=== PATIENT | female | born 1960 | race Caucasian/White ===

== ENCOUNTER 2019-03-10 08:55 | Day surgery (SDC) | payer OTHER ==
[~2019-03-10] VITALS: Ht 149.9 cm; Wt 79.4 kg
[2019-03-10] VITALS (11 sets, daily range): BP systolic 134–176; BP diastolic 73–88; PULSE 60–78; RESP 9–24; Ht 149.9 cm; Wt 79.4 kg
[~2019-03-10 08:55] MED LIST: CYCLOPENTOLATE 2% 2 ML OPH OPER SCH; MOXIFLOXACIN 0.5% 3 ML OPH OPER ONE; NEPAFENAC 0.1% 3 ML OPH OPER SCH; PHENYLephrine 10% 5 ML OPH OPER SCH
[2019-03-10] MEDS ORDERED: LIDOCAINE 1% (MPF) 10 ML INJ ONE (09:44)
[2019-03-10] MEDS ORDERED: NA BICARB 50 MEQ/50 ML VIAL ONE (09:45)
[2019-03-10] MEDS ORDERED: EPINEPHrine 1 MG INJ ONE (09:45)
[2019-03-10] MEDS ORDERED: LIDOCAINE 2% (SDV) 5 ML INJ ONE ×2 (09:46→10:36)
[2019-03-10] MEDS ORDERED: TIMOLOL MALEATE/PF 0.5% OCCUDOSE (0.3 ML) ONE (09:49)
[2019-03-10] MEDS ORDERED: INSU100C SQ (09:51)
--- NOTE | 2019-03-10 10:03 | PREAC ---
Date/Time of Note Date/Time of Note DATE: 03/10/19 TIME: 10:00 Anesthesia Eval and Record Evaluation Time Pre-Procedure Interview DATE: 03/10/19 TIME: 10:00 Age 58 Sex female NPO: 8 hrs Preoperative diagnosis L eye cataract Planned procedure L phacoemulsificaTION OF CATARACT W/ LENS IMPLANTATION OF POSTERIOR CHAMBER IOL IN L EYE Past Medical History Past Medical History: Includes Cardio: HTN, Dyslipidemia Endo: Diabetes GI: Obesity Surgery & Anesthesia Issues No known issue Meds Anticoagulation: No Beta Valentin within 24 hr: No Reason Beta Valentin not given: Pt. not on B-Valentin Reported Medications Insulin Lispro (Humalog) 100 Unit/1 Ml Cartridge, 12 UNIT SQ TID AC, EA 03/10/19 Current Medications Cyclopentolate HCl (Cyclogyl 2% Oph) 1 drop Q5 MIN X 3 OPER ; Start 03/10/19 at 07:00; Stop 03/10/19 at 18:00 Phenylephrine HCl (Ak-Dilate 10%) 1 drop Q5 MIN X3 OPER ; Start 03/10/19 at 07:00; Stop 03/10/19 at 18:00 Nepafenac ([place] Oph) 1 drop Q5 MIN X3 OPER ; Start 03/10/19 at 07:00; Stop 03/10/19 at 18:00 Meds reviewed: Yes Allergies Coded Allergies: No Known Allergy (Unverified , 03/09/19) Allergies Reviewed: Yes Labs/Studies Labs Reviewed: Reviewed by anesthesiologist test: N/A Pre-procedure Exam Last vitals Vital Signs Date Temp Pulse Resp B/P (MAP) Pulse Ox O2 O2 Flow FiO2 Time Delivery Rate 03/10/19 97.5 60 16 176/80 96 09:47 (112) Airway: Adequate mouth opening, Adequate thyromental dist Mallampati: Mallampati II Teeth: Abnormal (EDENTULOUS) Lung: Normal Heart: Normal ASA Physical Status ASA physical status: 2 Emergency: None Planned Anesthetic General/MAC: MAC Pre-operative Attestations Prior to commencing anesthesia and surgery, the patient was re-evaluated, there was verification of: *The patient's identity *The results of appropriate recent lab work and preoperative vital signs *The above evaluation not changing prior to induction *Anesthetic plan, risk benefits, alternative and complications discussed with patient/family; questions answered; patient/family understands, accepts and wishes to proceed. Wordpress Developer used MYRIAM MARIE Mar 10, 2019 10:03
[2019-03-10] MEDS ORDERED: ATOR40TA68 PO (10:05)
[2019-03-10] MEDS ORDERED: LANT3I SC (10:05)
[2019-03-10] MEDS ORDERED: EMPA10TA PO ×2 (10:05)
[2019-03-10] MEDS ORDERED: SITA100T11 PO (10:05)
[2019-03-10] MEDS ORDERED: LOSA50TA14 PO (10:05)
[2019-03-10] MEDS ORDERED: METF500T3 PO (10:05)
[2019-03-10] MEDS ORDERED: LIDOCAINE 1% (MPF) 10 ML INJ INJ ONE (10:20)
[2019-03-10] MEDS ORDERED: PHENYLephrine 10% 5 ML OPH LEFT EYE ONE (10:20)
[2019-03-10] MEDS ORDERED: TIMOLOL 0.5% 5 ML OPH LEFT EYE ONE (10:20)
--- NOTE | 2019-03-10 10:29 | HPN ---
Date/Time of Note Date/Time of Note DATE: 03/10/19 TIME: 10:28 Interval H&P Admission Note Pt. seen H&P reviewed: No system changes ADA TOLENTINO MD Mar 10, 2019 10:29
[2019-03-10] MEDS ORDERED: DIPHENHYDRAMINE 50 MG INJ IV PRN (10:30)
[2019-03-10] MEDS ORDERED: ACETAMINOPHEN 500 MG TAB PO PRN (10:30)
[2019-03-10] MEDS ORDERED: ONDANSETRON 4 MG INJ IV PRN (10:30)
[2019-03-10] MEDS ORDERED: OXYCODONE/ACETAMINOPHEN (5/325) TAB PO PRN (10:30)
[2019-03-10] MEDS ORDERED: ACETAMINOPHEN 325 MG TAB PO PRN (10:30)
[2019-03-10] MEDS ORDERED: hydrALAzine 20 MG INJ IV PRN (10:30)
[2019-03-10] MEDS ORDERED: ALBUTEROL 0.083% (NEB) 2.5 MG/3 ML AMP HHN PRN (10:30)
[2019-03-10] MEDS ORDERED: LABETALOL HCL 20MG INJ IV PRN (10:30)
[2019-03-10] MEDS ORDERED: PROPOFOL 20 ML ONE (10:36)
[2019-03-10] MEDS ORDERED: CARBACHOL 0.01% 1.5 ML OPH INJ LEFT EYE ONE (11:04)
--- NOTE | 2019-03-10 11:22 | PAC ---
Date/Time of Note Date/Time of Note DATE: 03/10/19 TIME: 11:21 Post-Anesthesia Notes Post-Anesthesia Note Last documented vital signs Vital Signs Date Temp Pulse Resp B/P Pulse Ox O2 O2 Flow FiO2 Time (MAP) Delivery Rate 03/10/19 97.5 99.3 60 75 16 16 176/80 96 96 RA 09:47 111 112 16 7 0/84 Activity: WNL Respiratory function: WNL Cardiovascular function: WNL Mental status: Baseline Pain reasonably controlled: Yes Hydration appropriate: Yes Nausea/Vomiting absent: Yes MYRIAM MARIE Mar 10, 2019 11:22
[2019-03-10] MEDS: FENTAnyl 50 MCG/ML VIAL IV PRN ×3 (11:29→11:53)
--- NOTE | 2019-03-10 11:34 | SIPON ---
Date/Time of Note Date/Time of Note DATE: 03/10/19 TIME: 11:30 Operative Report Preoperative Diagnosis SENILE CATARACT LEFT EYE Postoperative Diagnosis SAME Operation/Procedure Performed kpe WITH iol LEFT EYE Surgeon see signature line real estate assistant NONE Anesthesia: MAC Estimated blood loss: none Transfusion Required none Specimen NONE Grafts/Implants PC IOL Complications none ADA TOLENTINO MD Mar 10, 2019 11:34
[2019-03-10] MEDS ORDERED: CARBACHOL 0.01% 1.5 ML OPH INJ ONE (13:18)
--- NOTE | 2019-03-10 14:21 | OPR ---
DATE OF OPERATION: SURGEON: Ada Montero MD [employer] CAPTAIN: None. PREOPERATIVE DIAGNOSIS: Senile nuclear sclerotic cataract left eye. POSTOPERATIVE DIAGNOSIS: Senile nuclear sclerotic cataract, left eye. OPERATION: [place]man phacoemulsification with implantation of intraocular lens, left eye. DESCRIPTION OF PROCEDURE: Following standard preparation and draping of the patient, a lid speculum was placed for immobilization of the lids. A SuperBlade incision was made at the corneal limbal junc tion for access into the anterior chamber. Approximately 0.03 mL of nonpreserved 1% Xylocaine was in stilled into the anterior chamber, and after approximately 5 to 10 seconds, this was replaced with Vi scoat. A clear corneal incision was then made using the 3.2 mm keratome, following which an anterior circular capsulorrhexis was made. The major portion of the lens cortex and nucleus were then disloc ated from the capsular bag using hydrodissection. The KPE tip was introduced into the eye and contro lling tumbling of the lens with a 2-handed technique, the major portion of the lens cortex and nucleu s was removed, maintaining the lens in the plane of the iris. The remaining cortical material was re moved via the irrigating aspirating instrument. The capsular bag and the anterior chamber were now r eformed using Viscoat. The proper power lens was then placed in the capsular bag. The viscoelastic was then removed from the eye and the eye reformed with balanced salt solution. One 10-0 Vicryl sutu re was then used to ensure closure of the corneal incision. The eye was reformed to normal pressure using balanced salt solution. The eye and cul-de-sacs were now simply flooded with 5% Betadine solut ion. One drop of Vigamox and 1 drop of Betagan solution were instilled into the eye. A light pressu re dressing was applied, and the patient was returned to the recovery room in satisfactory condition. Dictated By: ADA NUNEZ/AMILCAR Conf#: [id number] DID#: [id number]
== END 2019-03-10 12:45 | disposition home or self-care (01) ==
LOC: SDS 08:55
PROVIDERS: ATTEND Ophthalmology
DX: H25.12 Age-related nuclear cataract, left eye (principal); I10 Essential (primary) hypertension; E78.5 Hyperlipidemia, unspecified; E11.9 Type 2 diabetes mellitus without complications; E66.9 Obesity, unspecified
CPT/HCPCS: 66984; 82962; J0171; J3010; V2632; Z7512; Z7610